=== PATIENT | female | born 1955 | race Asian ===

== ENCOUNTER 2019-09-28 16:54 | Emergency (ER) | payer OTHER ==
[~2019-09-28] VITALS: Ht 152.4 cm; Wt 65.8 kg
[2019-09-28 17:04] VITALS: Ht 152.4 cm; Wt 65.8 kg
[2019-09-28 21:42] VITALS: BP 135/78
== END 2019-09-28 21:42 | disposition home or self-care (01) ==
LOC: ED 16:54
DX: S61.210A Laceration without foreign body of right index finger without damage to nail, initial encounter (principal); S61.212A Laceration without foreign body of right middle finger without damage to nail, initial encounter; W26.9XXA Contact with unspecified sharp object(s), initial encounter; Y93.89 Activity, other specified; Y92.89 Other specified places as the place of occurrence of the external cause; Y99.8 Other external cause status
CPT/HCPCS: 90715; J2001; Q0092